=== PATIENT | male | born 2005 | race Caucasian/White ===

== ENCOUNTER 2025-03-16 10:04 | Outpatient (CLI) | payer OTHER, SELFPAY ==
--- OUTSIDE RECORDS SUMMARY | 2025-03-16 10:32 | XMS_ITS | Clinical Summary ---
Author Organization [facility] Address [address] [place] [address] Phone Care Team Providers Care Dance Historian Name Role Phone Ze Awan MD Primary Care Provider [phone] Medications No known medications Active Problems No known active problems Social History Tobacco Use Types Packs/Day Years Used Date Smoking Tobacco: Never Assessed Sex and Gender Information Value Date Recorded Sex Assigned at Not on file Legal Sex Male 9:31 AM CDT Gender Identity Not on file Sexual Orientation Not on file Last Filed Vital Signs Vital Sign Reading Time Taken Comments Blood Pressure 148/72 12/26/2021 1:36 PM CDT Pulse - - Temperature 37 C (98.6 F) 12/26/2021 1:36 PM CDT Respiratory Rate - - Oxygen Saturation - - Inhaled Oxygen Concentration - - Weight 72.4 kg (159 lb 9.6 oz) 12/26/2021 1:36 P M CDT Height 172.7 cm (5' 8) 12/26/2021 1:36 PM CDT Body Mass Index 24.27 12/26/2021 1:36 PM CDT Body Mass Index Percentile 82.92% 12/26/2021 1:3 6 PM CDT Growth Chart: CDC (Boys, 2-2 0 Years) Plan of Treatment Health Maintenance Due Date Last Done Comments CHLAMYDIA SCREENING (ANNUAL) 11-24 YEARS 2016 HPV VACCINES (1 - Male 3-dose series) 2020 COVID-19 Vaccine (3 - 2023- season) 2024, 01/04/2021 DTAP/TDAP/TD VACCINES (1 - Tdap) 2024 HEPATITIS B VACCINES (1 of 3 - 19+ 3-dose series) 2024 INFLUENZA VACCINE (#1) 2025 Insurance [facility] [id number] [facility] [id number] Care Teams Dance Historian Relationship Specialty Start Date End Date Ze Awan MD PCP - General Pediatrics 12/19/21
--- OUTSIDE RECORDS SUMMARY | 2025-03-16 10:32 | XMS_ITS | Clinical Summary ---
Author Organization [facility] Address [address] [place] [address] Care Team Providers Care Shearer Helper Name Role Phone Ze Awan MD Primary Care Provider [phone] Source Comments [facility],non-owned Affiliates and Associated Physician Practices is amultiple site organization consisting of ambulatory clinics and hospital sitesin [place], [place], [place] and [place]. This disclosure is being madepursuant to the Care Everywhere program and may not contain all information available regarding this patient. Last updated 18.[facility] Allergies No known active allergies Medications * Be aware that medications may not be up to date on this document. Alwaysverify current medications with the patient. No known medications Active Problems Problem Noted Date Diagnosed Date Warts 12/22/2013 Overview (12/12/2014): 03/02/14 Cryotherapy in office 03/09/14 Cryotherapy in office Overweight 12/22/2013 Overview (06/20/2015): GERD (gastroesophageal reflux disease) 4 Overview (12/22/2013): 12/22/13 Prevacid 15 mg OE (otitis externa) 03/14/2013 Overview (03/20/2013): 03/14/13 left (ciprodex) Screening for condition 03/15/2011 Overview (05/13/2015): Lead <2 05/10/2006 Hemoglobin 12.6 05/10/2006 Abscess 03/15/2011 Overview (03/16/2011): 03/15/11 septra (nonflunctuant - no cx obtained) Well child visit 03/15/2011 Overview (03/16/2011): 5 y/o 03/15/11 Hematoma 03/07/2011 Overview (03/16/2011): 03/07/11 Right inner thigh Molluscum contagiosum 12/07/2010 Wheezing 07/12/2010 Overview (07/19/2010): 07/12/10 neb x1, oral steroids Acute sinusitis 07/12/2010 Overview (07/19/2010): 07/12/10 zithromax Acute URI 07/12/2010 Overview (07/19/2010): 07/12/10 Encounters Date Type Department Care Team Description 03/16/2025 9:33 AM CDT Hospital Encounter [facility] Pediatrics - Orthopedics [address] [address] Letitia Hall PA 03/06/2025 Nurse Triage [facility] - Pediatrics [address] [place] [address] Shelly Minor MD Injury Foot from Last 3 Months Immunizations Immunization Administration Dates Next Due DPT 05/14/2009, 7,2005,2005, 2005 HEP A PEDS 2 DOSE 11/19/2006,05/09/2006 HEP B VACCINE ADOL/ADULT 2 DOSE 2005,09/22,2005,2005 HIB BOOSTER 09/03/2006,2005,2005 ,2005 INFLUENZA VACCINE 05/14/2009,06/26/2008,10/05/19 07,09/03/2006 MMR 03/15/2011,05/09/2006 PNEUMOCOCCAL CONJ, PEDS 09/03/2006,2005, PNEUMOCOCCAL PPSV23 2005 POLIO IPV 05/14/2009,2005,2005 ,2005 PPD 05/14/2009 VARICELLA 03/15/2011,05/09/2006 Social History Tobacco Use Types Packs/Day Years Used Date Smoking Tobacco: Never Smokeless Tobacco: Never Tobacco Cessation:Counseling Given: Not Answered Alcohol Use Standard Drinks/Week Comments Never 0 (1 standard drink = 0.6 oz pur e alcohol) Sex and Gender Information Value Date Recorded Sex Assigned at Not on file 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 Gender Identity Not on file Sexual Orientation Not on file Last Filed Vital Signs Vital Sign Reading Time Taken Comments Blood Pressure 98/58 03/15/2011 5:11 PM CDT Pulse - - Temperature 36.7 C (98 F) 11/30/2014 1:08 PM CDT Respiratory Rate - - Oxygen Saturation 97% 07/12/2010 12: 50 PM CHAINSTITCH ZIPPER SETTER after 1st treatment Inhaled Oxygen Concentration - - Weight 48.4 kg (106 lb 12.8 oz) 11/30/2014 1:08 PM CDT Height 139.7 cm (4' 7) 11/30/2014 1:08 PM CDT Body Mass Index 24.82 11/30/2014 1:08 PM CDT Body Mass Index Percentile 97.59% 11/30 1:08 PM CDT Growth Chart: CDC (Boys, 2-2 0 Years) Plan of Treatment Health Maintenance Due Date Last Done Comments DTAP/TDAP/TD VACCINES (6 - Tdap) 2016 05/14/2009, 09/03/2006, 2005, Additional history exists HIV SCREENING 2020 HPV VACCINE (1 - Male 3-dose series) 2020 MENINGOCOCCAL (Group B) VACCINE SHARED DECISION-MAKING (1 of 2 - Standard) 2021 HEPATITIS C SCREENING 05/04/2023 COVID-19 VACCINE (3 - season) 2024 01/25/2021, 01/04/2021 DEPRESSION SCREENING 08/13/2024 INFLUENZA VACCINE (#1) 2025 , 06/26/2008, 10/05/2006, Additional history exists ZOSTER VACCINE (1 of 2) 2055 HEPATITIS B VACCINE Completed 2005, 2005, 2005, Additional history exists HIB VACCINE Completed 09/03/2006, 04/2006, 2005, Additional history exists PNEUMOCOCCAL VACCINE Completed 09/03/2006, 2005, 2005, Additional history exists MENINGOCOCCAL GROUPS A/C/Y/W VACCINE Aged Out No longer eligible based on patient's age to complete [place] [address] [facility] * Guarantor: COLEEN CRUZ Account Type Relation to Patient Date of Phone Billing Address Personal/Family 2005 [address] [place] [address] Care Teams Shearer Helper Relationship Specialty Start Date End Date Ze Awan MD [address] [place] [id number] PCP - General Pediatrics 03/16/25
--- OUTSIDE RECORDS SUMMARY | 2025-03-16 10:32 | XMS_ITS | Clinical Summary ---
Author Organization [facility] Address [address] [place] [address] Care Team Providers Care Supervisor [employer] Name Role Phone Unavailable Primary Care Provider Unavailabl e Immunizations Immunization Administration Dates Next Due Covid-19, Mrna, Lnp-s, Pf, 30 Mcg/0.3 Ml Dose (P fizer) 01/25/2021,01/04/2021 Social History Tobacco Use Types Packs/Day Years Used Date Smoking Tobacco: Never Assessed Sex and Gender Information Value Date Recorded Sex Assigned at Not on file Legal Sex Male 6:12 AM CDT Gender Identity Not on file Sexual Orientation Not on file Plan of Treatment Health Maintenance Due Date Last Done Comments Hepatitis C Virus (HCV) Screening 2005 Human Papillomavirus (HPV) Immunization (1 - Male 3-dose series) 2020 Meningococcal B Immunization (1 of 2 - Standard) 2021 SARS-COV-2 Immunization (3 - season) 2024 01/25/2021, 01/04/2021 Influenza Immunization (#1) 2025 10/05/2006, 0 09/03/2006 Respiratory Syncytial Virus (RSV) Immunization (Adult) (1 - 1-dose 75+ series) 2080 Hepatitis B Immunization Completed 006, 2005, 2005, Additional history exists Pneumococcal Immunization Combined Completed 09/03/2006, 2005, 2005, Additional history exists Hepatitis A Immunization Discontinued 11/19/2006, 04/14 Polio (IPV) Immunization Discontinued 05/14/2009 Measles Mumps Rubella (MMR) Immunization Discontinued 03/15/2011, 05/09/2006 Varicella Immunization Discontinued 03/15/2011, 2005 DTaP/Tdap/Td Immunization Discontinued 2016, 05/14/2009, 09/03/2006, Additional history exists Meningococcal Immunization (ACWY) Aged Out 02/08/2017 No longer eligible based on patient's age to complete this topic TdaP Immunization Completed 02/08/2017 Rotavirus Immunization Aged Out No lo nger eligible based on patient's age to complete this topic
--- OUTSIDE RECORDS SUMMARY | 2025-03-16 10:33 | XMS_ITS | Encounter Summary ---
Author Organization [facility] Address [address] [place] [address] Care Team Providers Care Trash Man Name Role Phone Ze Awan MD Primary Care Provider [phone] Reason for Referral * Evaluate & Treat (Routine) - Closed Specialty Diagnoses / Procedures [facility] Referred To Contact Sports Medicine Diagnoses Closed fracture of foot, unspecified laterality, sequela Ze Awan MD [address] [place] [address] Phone: tel: fax: [address] [address] Phone: tel: Referral ID Status Reason Start Date Expiration Date V isits Requested Visits Authorized [id number] Closed Specialty Services Required 03/06/2025 03/06/2026 1 1 Scheduling Instructions Please call the [facility] team at [phone]. A member of the team will contact you within 24 hours. Reason for Visit * Reason Comments ER UC Follow-up * Evaluate & Treat (Routine) - Closed Specialty Diagnoses / Procedures Referred By [facility] Referred To Contact Sports Medicine Diagnoses Closed fracture of foot, unspecified laterality, sequela Ze Awan MD [address] [place] [address] Phone: tel: fax: [address] [address] Phone: tel: Referral ID Status Reason Start Date Expiration Date V isits Requested Visits Authorized [id number] Closed Specialty Services Required 03/06/2025 03/06/2026 1 1 Encounter Details Date Type Department Care Team (Late st Contact Info) Description 03/16/2025 9:33 AM CDT Hospital Encounter [facility] Pediatrics - Orthopedics [address] [place] [address] Letitia Hall PA [address] [place] [phone] Social History Tobacco Use Types Packs/Day Years Used Date Smoking Tobacco: Never Smokeless Tobacco: Never Tobacco Cessation:Counseling Given: Not Answered Alcohol Use Standard Drinks/Week Comments Never 0 (1 standard drink = 0.6 oz pur e alcohol) Sex and Gender Information Value Date Recorded Sex Assigned at Not on file 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 School excuse: 03/16/2025 Tylenol and Ibuprofen (over the counter medication) may be used per instructions. Boot - may remove for bathing/sleeping. May weight bear as tolerated in boot. If you have any questions or concerns in the interim, or if you need to schedule surgery for your child, you may contact our orthopedic office at . If you need to make a clinic appointment, please call . documented in this encounter Progress Notes * Letitia Hall PA - 03/16/2025 9:47 AM CDT PEDIATRIC ORTHOPAEDIC CLINIC NOTE NAME: Zohaib Cruz DATE OF SERVICE: 03/16/2025 DATE: 2005 PCP: Ze Awan MD HISTORY: Zohaib Cruz is a 19 year old male who presents 10 day(s) status post a left foot injury. Zohaib Cruz was treated at outside ED and presents for further evaluation. The patient rates his pain as a 0 out of 10. The patient denies new onset of numbness in his lower extremities. PAST MEDICAL HISTORY: Past Medical History[1] PAST SURGICAL HISTORY: Past Surgical History[2] MEDICATIONS: Medications[3] ALLERGIES: Allergies as of 03/16/2025 (No Known Allergies) IMMUNIZATIONS: Immunization status: stated as current, but no records available. SOCIAL HISTORY: Patient lives with his mother only. he does attend school, second year of college. FAMILY HISTORY: Negative for any genetic conditions affecting children. REVIEW OF SYSTEMS: History obtained from mother. 10 organ systems reviewed and positive for left foot pain. Negative except as stated above. PHYSICAL EXAMINATION: There were no vitals taken for this visit. General appearance: alert, cooperative, no distress. He has good head control. No rashes or abnormal dyspigmentation Extremities: The uninjured right lower extremity was examined and demonstrated normal skin, normal range of motion and alignment of all joint, normal motor, sensory and vascular examination, and was without pain.It was used for comparison when examining the injured left lower extremity. General appearance: no acute distress The examination was performed out of splint/cast Skin: ecchymosis present over the dorsolateral foot Swelling: none Tenderness: moderate, located cuboid maximally but also at the distal metatarsals. Deformity: No ROM: limited by pain Gait: non weight bearing on the left lower extremity Neurological Exam: normal Vascular Exam: normal RADIOGRAPHS: AP, lateral, & oblique xrays of the left foot were taken and assessed today. -Radiographic Assessment: They show no obvious osseous abnormality. Possible cuboid fracture. ASSESSMENT: 1. Left foot pain 2. Closed fracture of foot, unspecified laterality, sequela PLAN: We recommend the patient continue his boot. He may remove for bathing/sleeping Fracture precautions were reviewed today. The patient will stay out of PE/sports until further notice. The patientwill follow up in 3 week(s) for clinical examination and x-rays if indicated. They will call in theinterim with questions or concerns. [1] Past Medical History: Diagnosis Date NEGATIVE PAST MEDICAL HISTORY - SEE PROBLEM LIST [2] Past Surgical History: Procedure Laterality Date NEGATIVE SURGICAL HISTORY [3] No current outpatient medications on file. * Nirav Solis - 03/16/2025 9:41 AM CDT - Reason for visit: left foot injury - When & how it happened: 03/06/25 fell on foot at camp - Where & how was it treated: local ED same day, x rays taken boot given crutches given - Pain level 5 out of 10 documented in this encounter Plan of Treatment Scheduled Orders Name Type Priority Associated Diagnoses Orde r Schedule XR Foot Left 3Vw or More Imaging Routine Left foot pain 1 Occurrences starting 03/16/2025 until 03/16/2026 Scheduled Referrals Name Type Priority Associated Diagnoses Orde r Schedule [facility] @ Outpatient Referral Routine Closed fracture of foot, unspecified laterality, sequela 1 Occurrences starting 03/16/2025 until 03/16/2025 documented as of this encounter Visit Diagnoses Diagnosis Left foot pain- Primary Pain in limb Closed fracture of foot, unspecified laterality, sequela documented in this encounter Care Teams Trash Man Relationship Specialty Start Date End Date Ze Awan MD [address] [place] [address] PCP - General Pediatrics 03/16/25 documented as of this encounter
== END 2025-03-16 10:05 | disposition home or self-care (01) ==
PROVIDERS: Visit Provider Physician Assistant Surgical
DX: M79.672 Pain in left foot (principal)
CPT/HCPCS: 73630